=== PATIENT | male | born 1970 | race Caucasian/White ===

== ENCOUNTER 2017-07-26 08:21 | Observation (INO) | payer OTHER ==
[~2017-07-26] VITALS: Ht 177.8 cm; Wt 109.0 kg
[2017-07-26 09:09] LABS: HEMATOCRIT 44.4 % (38.0-50.0); HEMOGLOBIN 15.6 G/DL (12.5-16.6); MCH 30.5 PG (29.0-34.0); MCHC 35.1 G/DL (30.0-36.0); MCV 86.7 FL (86-99); PLATELET COUNT 231 K/uL (156-360); RBC DIS.WIDTH-CV 11.8 % (11.8-14.6); RBC DIS.WIDTH-SD 37.6 % (39-53); RED BLOOD COUNT 5.12 M/uL (4.00-5.50); WHITE BLOOD COUNT 3.6 K/uL (4.1-10.2)
[2017-07-26 09:22] LABS: ALBUMIN 4.2 g/dL (3.2-4.8); CHLORIDE 105 mEq/L (99-109); POTASSIUM 4.4 mEq/L (3.7-5.4); SODIUM 138 mEq/L (136-147)
[2017-07-26 09:24] LABS: GLUCOSE 107 mg/dL (70-99); TOTAL PROTEIN 7.1 g/dL (6.4-8.3)
[2017-07-26 09:26] LABS: TOTAL BILIRUBIN 0.6 mg/dL (0.0-1.0)
[2017-07-26 09:28] LABS: ALKALINE PHOSPHATASE 86 IU/L (3-129); CREATININE 1.1 mg/dL (0.6-1.3); GFR ESTIMATE (CALCULATED) > 59 mL/min/ (58.99-99999)
[2017-07-26 09:29] LABS: UREA NITROGEN (BUN) 11 mg/dL (9-23)
[2017-07-26 09:30] LABS: AST (GOT) 30 IU/L (2-34)
[2017-07-26 09:31] LABS: ALT (GPT) 56 IU/L (3-49); LIPASE 14 U/L (1.0-51.0)
[2017-07-26 09:32] LABS: TROP-I INTERPRETATION NEGATIVE; TROPONIN-I < 0.01 ng/mL (0.0-0.30)
[2017-07-26] MEDS ORDERED: COZAAR50 MG PO (11:12)
[2017-07-26 14:20] VITALS: BP 156/91
[2017-07-26 16:23] VITALS: BP 137/86
[2017-07-26 17:01] LABS: TROP-I INTERPRETATION NEGATIVE; TROPONIN-I < 0.01 ng/mL (0.0-0.30)
[2017-07-26 20:00] VITALS: BP 134/82
[2017-07-26 22:31] LABS: TROP-I INTERPRETATION NEGATIVE; TROPONIN-I < 0.01 ng/mL (0.0-0.30)
[2017-07-27 00:22] VITALS: BP 136/77
[2017-07-27 03:30] VITALS: BP 121/55
[2017-07-27 06:40] LABS: HEMATOCRIT 43.9 % (38.0-50.0); HEMOGLOBIN 15.2 G/DL (12.5-16.6); MCHC 34.6 G/DL (30.0-36.0); MCV 86.8 FL (86-99); PLATELET COUNT 231 K/uL (156-360); RBC DIS.WIDTH-CV 11.9 % (11.8-14.6); RBC DIS.WIDTH-SD 38.3 % (39-53); RED BLOOD COUNT 5.06 M/uL (4.00-5.50); WHITE BLOOD COUNT 4.7 K/uL (4.1-10.2)
[2017-07-27 06:57] VITALS: BP 132/94
[2017-07-27 07:15] LABS: ALBUMIN 4.2 G/DL (3.2-4.8); ALKALINE PHOSPHATASE 69 IU/L (3-129); ALT (GPT) 46 IU/L (3-49); AST (GOT) 25 IU/L (2-34); CHLORIDE 104 MEQ/L (99-109); GFR ESTIMATE (CALCULATED) > 59 mL/min/ (58.99-99999); GLUCOSE 115 mg/dL (70-99); POTASSIUM 4.3 MEQ/L (3.7-5.4); SODIUM 139 MEQ/L (136-147); TOTAL BILIRUBIN 0.8 MG/DL (0.0-1.0); TOTAL PROTEIN 6.5 G/DL (6.4-8.3); UREA NITROGEN (BUN) 15 mg/dL (9-23)
[2017-07-27 07:17] LABS: HDL CHOLESTEROL 48 MG/DL (Desirable>=40); LDL CHOLESTEROL 137 mg/dL (Desirable<100); NON-HDL CHOLESTEROL 154 mg/dL (Desirable<160); TOTAL CHOLESTEROL 202 mg/dL (Desirable<200); TRIGLYCERIDES 87 MG/DL (Normal: <150)
[2017-07-27] MEDS ORDERED: ASPIRIN81 M2 PO (10:28)
== END 2017-07-27 10:49 | disposition home or self-care (01) ==
LOC: EME 08:21 → EDOF 12:01 → 5WEST 12:01 → EDOF 12:01 → ENRESERV 12:08 → 5WEST 13:20 → ENPENDDIS 07-27 → 5WEST 07-27 10:49
PROVIDERS: Internal Medicine; Nurse Practitioner Family
DX: R07.9 Chest pain, unspecified (principal); R61 Generalized hyperhidrosis; I10 Essential (primary) hypertension; F17.220 Nicotine dependence, chewing tobacco, uncomplicated; R42 Dizziness and giddiness; Z82.49 Family history of ischemic heart disease and other diseases of the circulatory system
CPT/HCPCS: 71046; 80053; 80061; 83690; 84484; 85027; 93005; 99281; 99285; G0378